=== PATIENT | female | born 1985 | race Caucasian/White ===

== ENCOUNTER 2023-08-07 23:24 | Emergency (ER) | payer OTHER, SELFPAY ==
[2023-08-07 23:27] VITALS: BP 143/79; PULSE 101; RESP 20; TEMP 36.3; O2SAT 98; BMI 48.7
--- NOTE | 2023-08-08 00:12 | ED_ITS ---
HPI - General Adult General Chief complaint: Allergic Reaction Stated complaint: allergic reaction Time Seen by Provider: 08/07/23 23:57 Source: patient Mode of arrival: ambulatory Limitations: no limitations History of Present Illness HPI narrative: 38-year-old female presents the emergency department for evaluation of itching of the right ear canal and feeling flushed after eating a new food. She consumed a a sour cream, cheese and corn based dip covered in [employer]. Symptoms started about 15 minutes after consuming the food. There is no swelling of the lips, tongue or throat. There is no itching of the oral airway. No difficulty breathing. No skin reaction or hives. No itching to any other areas of the body. Has not taken any antihistamine to help with symptoms. No history of similar symptoms. No trauma or injury, no diarrhea. She does have a history of hives from amitriptyline and unknown reactions to gabapentin and Phenergan. She does not take any medications. No fevers or signs of recent illness. No other individuals that consume the same food are currently symptomatic. Past medical history benign per her report, no major long-term health problems. No long-term medications, allergies as noted above. ROS is notable for the generalized and HEENT symptoms as above only, otherwise denies times 12 systems. Related Data Home Medications Medication Instructions Recorded Confirmed No Known Home Medications 08/07/23 08/07/23 Allergies Allergy/AdvReac Type Severity Reaction Status Date / Time amitriptyline Allergy Mild Hives Verified 08/07/23 23:31 gabapentin [From Neurontin] Allergy Unknown Verified 08/07/23 23:31 promethazine [From Phenergan] Allergy Unknown Verified 08/07/23 23:31 [facility] Social History Smoking Status: Unknown if ever smoked Exam Const: Vital Signs, click to edit/add: Vital Signs - 24 hr 08/07/23 23:27 Temperature 97.3 F L Pulse Rate [Pulse Oximeter] 101 H Respiratory Rate 20 Blood Pressure [Ri ght Upper Arm] 143/79 H Pulse Oximetry 98 Oxygen Delivery Me thod Room Air Documenting provider has reviewed patient's vital signs: yes Common normals: no apparent distress and alert General appearance: cooperative, comfortable and well kempt HENMT: Common normals: normocephalic and TM's normal bilaterally Head and scalp: normocephalic Face and sinus: normal facial exam Tympanic membrane: TM's normal bilaterally and other (Ear canals completely normal appearing bilaterally with no dermatoses) Mouth: oral and palatal mucosa normal, lip normal and tongue normal Throat: posterior oropharynx normal; no uvular edema Eye: Common normals: conjunctivae normal General eye: normal appearance of both eyes Conjunctiva: conjunctiva(e) normal Neck & C-Spine: Common normals: full ROM and no lymphadenopathy Resp: Common normals: normal respiratory effort, no use of accessory muscles and clear to auscultation bilaterally Effort & inspection: able to speak in complete sentences Auscultation: clear to auscultation bilaterally Cardio: Common normals: regular rate, regular rhythm, S1 normal heart sound, S2 normal heart sound and no murmurs Rate: regular rate Rhythm: regular rhythm Heart sounds: S1 normal and S2 normal Neuro: Sensorium/orientation: alert Speech: speech normal Motor exam: no movement abnormalities noted Psych: Common normals: speech normal Appearance: well kempt Attitude: engaged Speech: normal speech Mood and affect: euthymic mood Skin: Common normals: no rashes or lesions noted General skin exam: no rashes or lesions noted Course Course ED Course: No signs of anaphylaxis, counseled patient on findings. Likely a side effect from a seasoning additive but there are no signs of any life-threatening condition. Allergy testing will not likely reveal the offending agent. Offered antihistamine to help with itching, specifically Vistaril. She declines, hoping that she could return to work which is certainly feasible. She is given Benadryl to take with her in case her reaction worsens. Extensively counseled on signs and symptoms of anaphylaxis. Able to return to work, note given. Try to avoid offending food agent. Return to the ED if symptoms worsen. Vital Signs Vital signs: Initial Vital Signs Temperature 97.3 F L 08/07/23 23:27 Temperature Source Temporal Artery Scan 08/07/23 23:27 Pulse Rate 101 H 08/07/23 23:27 Respiratory Rate 20 08/07/23 23:27 Blood Pressure 143/79 H 08/07/23 23:27 Blood Pressure Mean 100 08/07/23 23:27 Blood Pressure Position Sitting 08/07/23 23:27 Pulse Oximetry 98 08/07/23 23:27 Oxygen Delivery Method Room Air 08/07/23 23:27 Vital Signs Temperature 97.3 F L 08/07/23 23:27 Pulse Rate 101 H 08/07/23 23:27 Respiratory Rate 20 08/07/23 23:27 Blood Pressure 143/79 H 08/07/23 23:27 Pulse Oximetry 98 08/07/23 23:27 Oxygen Delivery Method Room Air 08/07/23 23:27 Temperature 97.3 F L 08/07/23 23:27 Pulse Rate 101 H 08/07/23 23:27 Respiratory Rate 20 08/07/23 23:27 Blood Pressure 143/79 H 08/07/23 23:27 Pulse Oximetry 98 08/07/23 23:27 Oxygen Delivery Method Room Air 08/07/23 23:27 Medications Administered Medications: Generic Name Dose Route Start Last Admin Trade Name Sergey PRN Reason Stop Dose Admin Diphenhydramine HCl 25 mg 08/08/23 00:15 08/08/23 00:19 Diphenhydramine 25 Mg Capsule PO 08/08/23 00:16 25 mg ONCE ONE Administration Discharge Plan Discharge Clinical Impression: Adverse effect of food additive Patient Disposition: Home, Self-Care Condition: Stable Instructions: Food Allergy (ED) Additional Instructions: As we discussed, your symptoms are likely from a food additive but are not a type 1 hypersensitivity. There are no signs of anaphylaxis or dangerous allergic reaction. Unfortunately, testing for this condition and potential offending agent is not often helpful. Most likely this was a seasoning additive. You have declined Benadryl which may help with the itching. If your symptoms worsen in you start to experience any tingling or itching or swelling of the lips, tongue, mouth or any difficulty breathing, you need to take Benadryl right away. Stay around others that can monitor your symptoms for the next couple hours. Things are very unlikely to progress and worsen. Try to avoid the offending agent if possible. Activity Level: Activity as Tolerated Discharge Diet: Regular Prescriptions: No Action No Known Home Medications Stand Alone Forms: MyHealth Info Instructions
[2023-08-08] MEDS: diphenhydrAMINE 25 MG CAPSULE PO (00:19)
[2023-08-08 00:28] VITALS: BP 123/74; PULSE 90; RESP 20; TEMP 36.7; O2SAT 98
== END 2023-08-08 00:30 | disposition home or self-care (01) ==
LOC: ED 08-08 00:30
PROVIDERS: Emergency Provider Family Medicine
DX: T78.1XXA Other adverse food reactions, not elsewhere classified, initial encounter (principal); L29.9 Pruritus, unspecified
CPT/HCPCS: 99282; 99283; A9270

== ENCOUNTER 2023-12-10 01:00 | Outpatient (CLI) | payer OTHER, SELFPAY ==
[2023-12-10 01:18] LABS: Appearance Urine Clear (Clear); Bilirubin Urine 1+ (Negative); Blood Urine Trace-intact (Negative); Color Urine Dark yellow (Yellow); Glucose Urine Negative (Negative); Ketones Urine 1+ (Negative); Leukocyte Esterase Urine Negative (Negative); Nitrite Urine Negative (Negative); Protein Urine 1+ (Negative); Specific Gravity Urine >= 1.030 (1.000-1.030); pH Urine 5.5 (5.0-8.5)
[2023-12-10 01:42] LABS: RBC Urine 0-2 (0-2); WBC Urine 0-2 (0-5)
== END 2023-12-10 01:56 | disposition home or self-care (01) ==
LOC: OB CLI 01:04 → OB 01:05
PROVIDERS: PCP Advanced Practice Midwife; Visit Provider Advanced Practice Midwife
DX: R10.9 Unspecified abdominal pain (principal); R31.9 Hematuria, unspecified
CPT/HCPCS: 81001; 81003; G0463

== ENCOUNTER 2023-12-10 06:17 | Emergency (ER) | payer OTHER, SELFPAY ==
[2023-12-10 06:24] VITALS: BP 142/93; PULSE 99; RESP 18; TEMP 36.6; O2SAT 98; BMI 47.2
--- NOTE | 2023-12-10 06:26 | ED.FEMALEGU ---
HPI - Female Genitourinary General Time Seen by Provider: 06:26 Date Seen: 12/10/23 Chief complaint: Urogenital Problems, Female Stated complaint: Blood in urine, L side flank pain Time Seen by Provider: 12/10/23 06:24 Source: patient, RN notes reviewed and old records reviewed Mode of arrival: ambulatory Limitations: no limitations History of Present Illness HPI Narrative: 38-year-old female who comes in today with left flank pain and hematuria. Patient has a distant history of kidney stones when she was but nothing since then. Pain started yesterday, constant pain in the left flank that radiates around laterally a little bit, accompanied by nausea and vomiting. Took Tylenol and ibuprofen with minimal improvement. Related Data Home Medications Medication Instructions Recorded Confirmed No Known Home Medications 08/07/23 08/07/23 Allergies Allergy/AdvReac Type Severity Reaction Status Date / Time amitriptyline Allergy Mild Hives Verified 08/07/23 23:31 gabapentin [From Neurontin] Allergy Unknown Verified 08/07/23 23:31 promethazine [From Phenergan] Allergy Unknown Verified 08/07/23 23:31 PFSH PFSH Social History Smoking Status: Unknown if ever smoked Exam Narrative: Exam Narrative: General: Well-developed and well-nourished, no acute distress Head: Atraumatic and normocephalic Eyes: Pupils are equal reactive, extraocular motions intact, conjunctiva clear ENT: External nose and ears are normal, posterior pharynx without erythema or exudate Neck: No midline cervical tenderness, full spontaneous range of motion the neck, trachea midline, no adenopathy Heart: Regular rate and rhythm no murmurs or thrills Lungs: Clear to auscultation bilaterally without wheezes or crackles Abdomen: Soft, nontender, nondistended with active bowel sounds, left CVA tenderness Musculoskeletal: No tenderness, deformity, or edema Neurologic: Awake, alert, and oriented x3, no gross focal neurologic deficits, cranial nerves intact as tested Psych: Mood and affect are appropriate Skin: No rashes Const: Vital Signs, click to edit/add: Vital Signs - 24 hr 12/10/23 06:24 12/10/23 06:38 Temperature 97.8 F 97.8 F Pulse Rate [Pulse Oximeter] 99 Respiratory Rate 18 Blood Pressure [Le ft Upper Arm] 142/93 H Pulse Oximetry 98 Oxygen Delivery Me thod Room Air Course Course ED Course: Patient seen examined, prior records reviewed. Patient presents with left flank pain and some nausea overnight, has CVA tenderness. Consider musculoskeletal pain, kidney stone, pyelonephritis. Patient urinalysis done earlier that shows trace blood but no red cells, no evidence for infection. CT scan is ordered along with Zofran, Toradol, and fluids Reevaluation(s) Time of Reevaluation #1: 07:56 Reevaluation #1: CT scan of the abdomen and pelvis and panel interpreted by me does not demonstrate any evidence of nephrolithiasis, hydronephrosis, or hydroureter. There is some air in the bladder consistent with instrumentation which is not happened, or possible infection but urinalysis is not consistent with infection. Patient is stable for discharge with outpatient follow-up. Vital Signs Vital signs: Initial Vital Signs Temperature 97.8 F 12/10/23 06:24 Temperature Source Temporal Artery Scan 12/10/23 06:24 Pulse Rate 99 12/10/23 06:24 Respiratory Rate 18 12/10/23 06:24 Blood Pressure 142/93 H 12/10/23 06:24 Blood Pressure Mean 109 H 12/10/23 06:24 Blood Pressure Position Sitting 12/10/23 06:24 Pulse Oximetry 98 12/10/23 06:24 Oxygen Delivery Method Room Air 12/10/23 06:24 Vital Signs Temperature 97.8 F 12/10/23 06:24 Pulse Rate 99 12/10/23 06:24 Respiratory Rate 18 12/10/23 06:24 Blood Pressure 142/93 H 12/10/23 06:24 Pulse Oximetry 98 12/10/23 06:24 Oxygen Delivery Method Room Air 12/10/23 06:24 Temperature 97.8 F 12/10/23 06:38 Pulse Rate 99 12/10/23 06:24 Respiratory Rate 18 12/10/23 06:24 Blood Pressure 142/93 H 12/10/23 06:24 Pulse Oximetry 98 12/10/23 06:24 Oxygen Delivery Method Room Air 12/10/23 06:24 Medications Administered Medications: Discontinued Medications Generic Name Dose Route Start Last Admin Trade Name Freq PRN Reason Stop Dose Admin Sodium Chloride 1,000 mls @ 1,000 mls/hr 12/10/23 06:30 12/10/23 07:30 0.9 % Sodium Chloride 1000 Ml IV 12/10/23 07:29 Infused .Q1H ADITHYA Infusion Ketorolac Tromethamine 15 mg 12/10/23 06:30 12/10/23 06:38 Ketorolac 15 Mg/Ml Inj IVP 12/10/23 06:31 15 mg ONCE ONE Administration Ondansetron HCl 4 mg 12/10/23 06:30 12/10/23 06:37 Ondansetron 2 Mg/Ml Inj IVP 12/10/23 06:31 4 mg ONCE ONE Administration Discharge Plan Discharge Clinical Impression: Left flank pain Patient Disposition: Home, Self-Care Condition: Stable Instructions: Flank Pain (ED), Back Pain (ED) Activity Level: Light activity Discharge Diet: Regular Prescriptions: No Action No Known Home Medications Follow Up/Referrals: Alla Connell CNM [Primary Care Provider] - Stand Alone Forms: MyHealth Info Instructions
--- NOTE | 2023-12-10 06:30 | CT_ITS ---
Patient: ANABELLA NASH Facility:?[facility] Patient ID:?[id number] Site Patient ID:?[id number]. Site :?[id number] Study:?CT-Abdomen/Pelvis W/O-12/10/2023 6:52:19 AM Ordering Physician:KAYCE Final Report: INDICATION: LT ABDOMEN/FLANK PAIN, BLOOD IN URINE, HX OF KIDNEY STONES TECHNIQUE: CT abdomen and pelvis without contrast, stone protocol. COMPARISON: None. FINDINGS: Kidney/ureters: Kidneys are normal in caliber. No kidney or ureteral stones and no hydronephrosis. No sign of perinephric inflammation. Ureters are normal in caliber. Small volume air within the bladder dome. Liver/gallbladder/bile ducts: The liver is normal in size, shape and attenuation. Suspect surgically absent gallbladder. No biliary dilatation. Spleen/pancreas/adrenal glands: The spleen, adrenal glands and pancreas are within normal limits. GI tract: No evidence of bowel obstruction or inflammation. Mild stool burden. Normal appendix. Abdominal wall/omentum/peritoneum: No free air or significant free fluid. No mass or inflammation. Tiny fat containing umbilical hernia. Lymph nodes: No lymphadenopathy. Pelvis: Uterus is visualized. Nonspecific small volume air within the vaginal canal. Lower chest: Unremarkable. IMPRESSION: 1. No evidence of nephroureterolithiasis or hydroureteronephrosis. 2. Small volume air within the bladder dome. Findings may relate to prior Martin catheter manipulation. Cannot exclude infection. 3. Nonspecific small volume air within the vaginal canal. Please note that all CT scans at this facility use dose modulation, iterative reconstruction, and/or weight-based dosing when appropriate to reduce radiation dose to as low as reasonably achievable. Dictated by Jose Cornejo MD @ 12/10/2023 7:49:37 AM Signed by:?Jose Cornejo MD @12/10/2023 7:49:37 AM (Electronic Signature)
[2023-12-10] MEDS: ONDANSETRON 2 MG/ML inj 4 MG IVP (06:37)
[2023-12-10] MEDS: 0.9 % SODIUM CHLORIDE 1000 ml 1,000 ML IV (06:37)
[2023-12-10 06:38] VITALS: TEMP 36.6
[2023-12-10] MEDS: KETOROLAC 15 MG/ML inj IVP (06:38)
== END 2023-12-10 08:13 | disposition home or self-care (01) ==
PROVIDERS: Emergency Provider Family Medicine; PCP Advanced Practice Midwife
DX: R10.9 Unspecified abdominal pain (principal)
CPT/HCPCS: 74176; 96374; 96375; 99284; J1885; J2405; J7030

== ENCOUNTER 2024-05-10 06:08 | Emergency (ER) | payer OTHER, SELFPAY ==
[2024-05-10 06:15] VITALS: BP 134/91; PULSE 78; RESP 18; TEMP 36.8; O2SAT 99; BMI 44.3
--- NOTE | 2024-05-10 06:31 | CRLHL7_ITS ---
For Patients: As a result of the Cures Act, medical imaging exams and procedure reports are released immediately into your electronic medical record. You may view this report before your referring provider. If you have questions, please contact your health care provider. Indication: Palpable fullness right breast. Technique: The patient has an area of palpable concern in the right breast. The indicated area of concern is the 2 o`clock position of the right breast 2 centimeters from the nipple. Comparison: There are no prior studies for comparison Findings: A complex cystic fluid collection is noted in this area with surrounding edematous tissue. The surrounding tissue is mildly hypervascular. This probably represents a developing abscess in the setting of localized mastitis. Isolated sonography in this setting does not constitute a full or formal breast imaging. Follow up evaluation of this is recommended both clinically and by formal breast imaging as guided by the clinical evaluation. I discussed the above findings with Dr. Boyer at 8 a.m. on May 10, 2024 Impression: At the 2 o`clock position 2 centimeters from the nipple as a developing complex fluid collection measuring 6.4 x 2.1 x 5.8 centimeters. This probably represents a developing abscess in the setting of localized mastitis. Clinical and imaging follow-up is recommended to ensure this is a benign inflammatory focus. Dictated by Bari Ag MD @ 05/10/2024 8:03:31 AM (Electronically Signed)
--- NOTE | 2024-05-10 06:35 | ED.GENADULT ---
HPI - General Adult General Chief complaint: Breast Symptoms Stated complaint: RT breast pain Time Seen by Provider: 05/10/24 06:21 Source: patient Mode of arrival: ambulatory Limitations: no limitations History of Present Illness HPI narrative: 31-year-old female presents to the ED with right breast pain for less than 24 hours, worsening this morning. No trauma or injury. No for 5 years. Does not take any prescription medications. No discharge or drainage. Has not noticed any overlying redness of the skin. No fever. Tried some Tylenol at 3:00 a.m. with no significant improvement. Cannot even wear a bra. Area of maximum pain is around 2:00 a.m. from the nipple, just off of the Devante a and extending in about a 3-4 cm round area. No prior history of similar symptoms but she did have mastitis when she was lactating years ago and says that the pain feels similar. Does have bilateral nipple piercings, left breast is unaffected. No recent mammogram. Can feel a firm, heavy area but no discrete mass. Has not tried any other interventions prior to coming to ED. States that her past medical history is benign, denies major long-term health problems. Denies prescription medications. Allergies to amitriptyline gabapentin and Phenergan. ROS is notable for the right breast symptoms only, otherwise denies times 12 systems. Related Data Previous Rx's ?Medication ?Instructions ?Recorded doxycycline hyclate 100 mg capsule 100 mg PO BID #20 caps 05/10/24 Allergies Allergy/AdvReac Type Severity Reaction Status Date / Time amitriptyline Allergy Mild Hives Verified 05/10/24 06:18 gabapentin [From Neurontin] Allergy Unknown Verified 05/10/24 06:18 promethazine [From Phenergan] Allergy Unknown Verified 05/10/24 06:18 [facility] Social History Smoking Status: Never smoker Second hand tobacco smoke exposure: No How often do you have a drink containing alcohol: never AUDIT-C Alcohol total score: 0 Non-prescribed substance use: denies use Exam Const: Vital Signs, click to edit/add: Vital Signs - 24 hr 05/10/24 06:15 05/10/24 06:37 Temperature 98.2 F 98.2 F Pulse Rate [Right Pulse Oximeter] 78 Respiratory Rate 18 Blood Pressure [Ri ght Upper Arm] 134/91 H Pulse Oximetry 99 Oxygen Delivery Me thod Room Air Documenting provider has reviewed patient's vital signs: yes Common normals: no apparent distress General appearance: cooperative and well kempt HENMT: Face and sinus: normal facial exam Eye: General eye: normal appearance of both eyes Neck & C-Spine: General: normal visual inspection Chest: Other: Left breast is pendulous, normal in appearance. Limbal piercing present. Texture of the breast normal, non lactational with no mass or tenderness. Right breast has a slight fullness that can be seen in the upright position but no skin dimpling or retraction. Nipple piercing is present. Devante appears normal. There is a 4 cm area of slight increased density and tenderness but no discrete changes to the top of the skin, obvious mass. Area is exquisitely tender. No drainage noted from the nipple. No axillary adenopathy. There are a couple of pain point red papules just medial to the area of pain but no vesicles, abrasion or other signs of skin abnormality. Under breast does have very slight intertrigo but not unexpected for breast shape and size. Does not seem significantly infected on the underside. Breast overall without warmth or overlying redness. Resp: Common normals: normal respiratory effort Effort & inspection: able to speak in complete sentences Extremity: Common normals: normal to inspection Psych: Common normals: speech normal Appearance: well kempt Attitude: engaged Activity/motor behavior: appropriate eye contact Speech: normal speech Mood and affect: euthymic mood Skin: Common normals: no rashes or lesions noted Narrative: Other than slight small chain of red spots along medial right breast, no other abnormality. General skin exam: no rashes or lesions noted Course Course ED Course: Exquisite right breast tenderness with diffuse firmness concerning for abscess, non lactational mastitis, inflammation from a breast tumor, cellulitis, hematoma from undisclosed trauma, amongst others. Recommend ultrasound. Patient is hoping to go to work after the ultrasound, will give Toradol 10 mg p.o. x1. May require surgical consult and or antibiotic therapy. Awaiting ultrasound. Reevaluation(s) Time of Reevaluation #1: 07:04 Reevaluation #1: My interpretation of the ultrasound formal images matches with the tech impression which clearly shows a good-sized ultrasound at least 3 but probably closer to 4 cm round consistent with an abscess. These tend to take 1-2 hours for formal interpretation. Instead, I spoke with our general surgeon and explained how the clinical exam and my preliminary impression of the images matches with an abscess. She will arrange aspiration in the office today. Patient's contact information is given to the surgeon. We discussed antibiotics, she is in agreement for doxycycline. Patient has elected to stay home from work today to facilitate this appointment. Work note is given. Patient does need to drive herself home, will be given oxycodone from [employer] to take once she gets home as the Tylenol and Toradol are not really meeting her needs. Counseled on continuing Tylenol 1000 mg every 6 hours and/or ibuprofen 600 mg every 6 hours for pain. If the pain is still on resolved, limited supply of oxycodone 10 tablets is given. She will keep her appointment later today probably around lunchtime for aspiration from our surgical team. First dose of doxycycline given here in ED, remainder sent to her pharmacy per her request. Alarm symptoms reviewed that would warrant ED presentation, signs of sepsis, etc.. She verbalizes understanding and agreement. Call ED if she has not heard from the surgeon within 2 hours. Vital Signs Vital signs: Initial Vital Signs Temperature 98.2 F 05/10/24 06:15 Temperature Source Temporal Artery Scan 05/10/24 06:15 Pulse Rate 78 05/10/24 06:15 Respiratory Rate 18 05/10/24 06:15 Blood Pressure 134/91 H 05/10/24 06:15 Blood Pressure Mean 105 05/10/24 06:15 Blood Pressure Position Sitting 05/10/24 06:15 Pulse Oximetry 99 05/10/24 06:15 Oxygen Delivery Method Room Air 05/10/24 06:15 Vital Signs Temperature 98.2 F 05/10/24 06:15 Pulse Rate 78 05/10/24 06:15 Respiratory Rate 18 05/10/24 06:15 Blood Pressure 134/91 H 05/10/24 06:15 Pulse Oximetry 99 05/10/24 06:15 Oxygen Delivery Method Room Air 05/10/24 06:15 Temperature 98.2 F 05/10/24 06:37 Pulse Rate 78 05/10/24 06:15 Respiratory Rate 18 05/10/24 06:15 Blood Pressure 134/91 H 05/10/24 06:15 Pulse Oximetry 99 05/10/24 06:15 Oxygen Delivery Method Room Air 05/10/24 06:15 Medications Administered Medications: Discontinued Medications Generic Name Dose Route Start Last Admin Trade Name Sergey PRN Reason Stop Dose Admin Doxycycline Hyclate 100 mg 05/10/24 06:56 05/10/24 06:59 Doxycycline Hyclate 100 Mg PO 05/10/24 06:57 100 mg ONCE ONE Administration Ketorolac Tromethamine 10 mg 05/10/24 06:31 05/10/24 06:37 Ketorolac 10 Mg Tablet PO 05/10/24 06:32 10 mg ONCE ONE Administration Discharge Plan Discharge Clinical Impression: Breast abscess Patient Disposition: Home, Self-Care Condition: Stable Instructions: Abscess (ED) Additional Instructions: As we discussed, the tender area in your right breast does seem consistent with an abscess. The formal ultrasound report is pending at this time but tends to take 1-2 hours to come back. Because of this, I feel it is safe to send you home starting antibiotic treatment since the surgeon has planned follow-up mid day for you. I have spoken with Dr. Hunt, her office will be calling you shortly. She plans to see you in the clinic today to perform an aspiration of the abscess. This will help it heal and also help us know what kind of bacteria are present. She may change the instructions that I gave you based on her exam and findings. I have started you on doxycycline, a common antibiotic. Take 1 pill 2 times a day for 10 days. You have been given your 1st dose here in the ED, please take another dose before bed tonight. Most feel quite a bit better within 48 hours. I think it is safe to attempt to go to work tomorrow. For pain, Tylenol 1000 mg every 6 hours and/or ibuprofen 600 mg every 6 hours. I will also give you a limited supply of oxycodone to use if the pain is severe. You're welcome to try ice or hot packs, whichever feels better. If you have any signs of severe illness, weakness, dizziness, persistent high fever or other alarming symptoms, you should come back to the emergency department. Activity Level: Activity as Tolerated Discharge Diet: Regular Prescriptions: New doxycycline hyclate 100 mg capsule 100 mg PO BID Qty: 20 0RF Follow Up/Referrals: Provider,Not a Local [Primary Care Provider] - Stand Alone Forms: [facility] Info Instructions
[2024-05-10 06:37] VITALS: TEMP 36.8
[2024-05-10] MEDS: KETOROLAC 10 MG TABLET PO (06:37)
[2024-05-10] MEDS: DOXYCYCLINE HYCLATE 100 MG PO (06:59)
[2024-05-10 07:05] VITALS: BP 125/84; PULSE 74; RESP 18; TEMP 36.8; O2SAT 99
[2024-05-10 07:06] VITALS: BP 125/84; PULSE 74; RESP 18; TEMP 36.8
== END 2024-05-10 07:06 | disposition home or self-care (01) ==
LOC: ED 07:05
PROVIDERS: Emergency Provider Family Medicine
DX: N61.1 Abscess of the breast and nipple (principal)
CPT/HCPCS: 76642; 99283; A9270

== ENCOUNTER 2024-05-10 10:25 | Outpatient (CLI) | payer OTHER, SELFPAY | END 2024-05-10 10:26 | disposition home or self-care (01) | PROVIDERS: Visit Provider Surgery | DX: N61.1 Abscess of the breast and nipple (principal) | CPT/HCPCS: 87070 ==

== ENCOUNTER 2024-05-18 10:27 | Outpatient (CLI) | payer OTHER, SELFPAY ==
--- OUTSIDE RECORDS SUMMARY | 2024-05-18 10:29 | XMS_ITS | Clinical Summary ---
Author Organization [facility] Address [address] [place] [address] Care Team Providers Care Automotive Upholsterer Name Role Phone None Reported, Pcp Primary Care Provider Unavail able Source Comments Patient records contain information from all sites at [facility]. For routine questions regarding patient records, call [phone] during business hours, M-F 8:00 AM - 5:00 PM Central Time. Record requests for emergency care only can be directed to [phone] at any time.[facility] Allergies Active Allergy Reactions Criticality Noted Date Comments Amitriptyline Hives (Reselect Reaction),Nausea Only 03/04/2006 Not sure which med does what Gabapentin Hives (Reselect Reaction),Nausea Only 05/17/2008 Not sure which med does what Promethazine Hives (Reselect Reaction),Nausea Only 03/07/2006 Not sure which med does what Medications No known medications Active Problems No known active problems Social History Tobacco Use Types Packs/Day Years Used Date Smoking Tobacco: Never Assessed Nutrition Answer Date Recorded Nutrition: EVOO Fat Source Unknown 12/26 Nutrition: Servings of Fruits/Vegetables per Day Not on file 12/26/2022 Dental Answer Date Recorded Dental: Regular Dentist Unknown 12/27/19 Sex and Gender Information Value Date Recorded Sex Assigned at Not on file Gender Identity Not on file Sexual Orientation Not on file Last Filed Vital Signs Vital Sign Reading Time Taken Comments Blood Pressure 166/101 12/26/2022 12:12 PM CDT Pulse 74 12/26/2022 12:12 PM CDT Temperature 36.4 ??C (97.5 ??F) 12/26/2022 12:12 PM C DT Respiratory Rate 20 12/26/2022 12:12 PM CDT Oxygen Saturation 98% 12/26/2022 12:12 PM CDT Inhaled Oxygen Concentration - - Weight 140 kg (309 lb 8.4 oz) 12/26/2022 12:17 P M CDT Height - - Body Mass Index - - Plan of Treatment Health Maintenance Due Date Last Done Comments HIV Screening 1986 Hepatitis C Screening 1986 Lipid (Cholesterol) Screening 1986 DTaP,Tdap,and Td Vaccines (5 - Td or Tdap) 05/09/2019 05/09/2009, 03/21/1987, 1986, Additional history exists Depression Screening (Annual PHQ-2) 09/05/2023 COVID-19 Vaccine (2022- season) 2024 12/03/2022, 08/26/2021 Influenza Vaccine (#1) 2024 3, 11/26/2014, 05/26/2011, Additional history exists Hepatitis B Vaccines Completed 02/04/2015, 11/13/2003, 11/13/2003, Additional history exists HPV Vaccines Aged Out No longer eligi ble based on patient's age to complete this topic Pneumococcal vaccine (0-64 years) Aged Out No longer eligible based on patient's age to complete this topic Care Teams Automotive Upholsterer Relationship Specialty Start Date End Date None Reported, Pcp PCP - General Family Medicine 12/26/22
--- OUTSIDE RECORDS SUMMARY | 2024-05-18 10:30 | XMS_ITS | Clinical Summary ---
Author Organization [facility] Address [place], [place] [address] Care Team Providers Care Social Scientist Name Role Phone Emilee Lloyd Primary Care Provider [phone] Allergies Active Allergy Reactions Criticality Noted Date Comments Amitriptyline Hives,Nausea Only 03/04/2006 Not sure which med does what Gabapentin Hives,Nausea Only 05/17/2008 Not sure which med does what Promethazine Hives,Nausea Only 03/07/2006 Not sure which med does what Medications Medication Sig Dispensed Refills Start Date End Date Status semaglutide (Ozempic) 2 mg/dose (8 mg/3 mL) penIndications:Cl ass 3 severe obesity due to excess calories without serious comorbidity with body mass index (BMI) of 45.0 to 49.9 in adult (HC),Elevated blood pressure reading without diagnosis of hypertension Inject 0.75 mL (2 mg) subcutaneous once weekly. 9 mL 3 04/20/2024 Active LORazepam (ATIVAN) 0.5 mg tabIndications:Pa ellis attack TAKE 1/2 (ONE-HALF) TABLET BY MOUTH TWICE DAILY NEEDED FOR ANXIETY 10 Tablet 03/23/2024 Active hydrOXYzine HCL (ATARAX) 25 mg tabletIndications :Anxiety,Insomnia , unspecified type TAKE 1/2 (ONE-HALF) TABLET BY MOUTH EVERY 8 HOURS NEEDED FOR ANXIETY 25 Tablet 03/23/2024 Active FLUoxetine (PROZAC) 10 mg capsuleIndication s:Situational anxiety Take 1 Capsule (10 mg) by mouth once daily. 90 Capsule 2 05/08/2024 Active lisinopriL (PRINIVIL; ZESTRIL) 5 mg tabletIndications :Elevated blood pressure reading without diagnosis of hypertension Take 1 Tablet (5 mg) by mouth once daily. 90 Tablet 1 05/08/2024 Active Ozempic 0.25 mg or 0.5 mg (2 mg/3 mL) penIndications:Cl ass 3 severe obesity with body mass index (BMI) of 50.0 to 59.9 in adult (HC),Elevated blood pressure reading without diagnosis of hypertension INJECT 0.75 ML (0.5 MG) SUBCUTANEOUS ONCE WEEKLY FOR 28 DAYS 6 mL 01/04/2024 4 Discontinue d(*Med complete/Re gimen complete/Le omari of care change) lisinopriL (PRINIVIL; ZESTRIL) 5 mg tabletIndications :Elevated blood pressure reading without diagnosis of hypertension Take 1 Tablet (5 mg) by mouth once daily. 90 Tablet 01/04/2024 4 Discontinue d(Reorder (E-cancel not sent)) semaglutide (OZEMPIC) 1 mg/dose (4 mg/3 mL) penIndications:Cl ass 3 severe obesity due to excess calories without serious comorbidity with body mass index (BMI) of 45.0 to 49.9 in adult (HC),Elevated blood pressure reading without diagnosis of hypertension Inject 1 mg subcutaneous once weekly for 28 days. 3 mL 03/23/2024 4 FLUoxetine (PROZAC) 10 mg capsuleIndication s:Situational anxiety Take 1 capsule by mouth once daily 30 Capsule 03/22/2024 4 Discontinue d(Reorder (E-cancel not sent)) Active Problems Problem Noted Date Diagnosed Date Pap smear for cervical cancer screening 11/04/19 22 Overview (12/16/2021): 11/2021 NIL/HPV Negative. Plan: Pap/HPV testing due 11/2026 Status post repeat low transverse secti on 03/22/2018 Vaginal discharge during in third trim mike 03/09/2018 Overview (03/09/2018): r/o PROM; [place] on Divert Status Previous section complicating 03/08/2018 Kidney stone complicating , second trim mike 11/25/2017 Status post primary low transverse sect ion 07/21/2013 Overview (07/21/2013): for breech, failed version attempt Myopia 12/09/2010 External hemorrhoids without mention of complica tion 06/27/2010 Obesity, morbid 03/16/2010 Nightmares 11/07/2008 Insomnia, unspecified 11/07/2008 Anxiety disorder 08/06/2008 Overview (03/21/2014): zoloft not effective Occipital neuralgia 04/23/2008 Major depressive disorder, recurrent episode, un specified 02/17/2007 Allergic rhinitis, cause unspecified 02/17/2007 Esophageal reflux 02/17/2007 Resolved Problems Problem Noted Date Diagnosed Date Resolved Date Right lower quadrant abdominal pain 07/06/2016 11/25/2017 Previous section 01/20/2015 testing 12/18/2014 11/25/2017 Overview (12/18/2014): MPP TESTING ONLY: NEXT VISIT ALERTS: PRIMARY DIAGNOSIS: NST and BPP tests were ordered to be done on a weekly basis due to your baby's S/D ratio being slightly increased as noted by ultrasound on 12/11/2014 TESTING PLANS: Weekly BPP REFERRING PHYSICIAN: Dr. Ernesto Nina MEDS: Abnormal head circumference in relation to growth and age standard 12/11/2014 11/25/2017 Pubic bone pain 10/30/2014 11/25/2017 Pelvic pressure in , antepartum 10/30/2014 11/25/2017 Low-lying placenta 10/30/2014 8 Supervision of high-risk 10/24/2014 11/25/2017 Supervision of other normal 07/08/2014 10/24/2014 Patient desires vaginal gen h after section () 07/08/2014 10/30/2014 Overview (07/08/2014): Double layer closure, no laceration, done for failed ext version, breech 06/11/2014 11/25/2017 Breech presentation 07/20/2013 03/21/20 14 Backache 02/01/2013 03/21/2014 examination or alice t, unconfirmed 11/14/2012 07/16/2013 Oligohydramnios, antepartum 11/17/2011 07/16/2013 GBS (group B Streptococcus c arrier), +RV culture, currently 10/21/2011 07/16/2013 Supervision of other normal 05/12/2011 03/21/2014 LGA (large for gestational age) fetus 07/01/2010 09/29/2011 Medication exposure during f irst trimester of 03/16/2010 11/25/2017 Contact with or exposure to viral disease during the 1st trimester 03/16/2010 09/29/2011 Known or suspected anomaly, antepartum 0 09/29/2011 Excess weight 12/10/2009 11/25/2017 Supervision of normal first 12/10/2009 05/12/2011 Bipolar 2 disorder 10/17/2009 4 Overview (01/03/2014): seroquel - gained weight. Headache(784.0) 04/23/2008 11/25/2017 Borderline personality disorder 01/08/2007 09/28/2023 Depressive disorder, not elsewhere classified 05/02/20 06 01/20/2007 Migraine, unspecified, witho ut mention of intractable migraine without mention of status migrainosus 12/20/2005 01/20/2007 Term 11/25/2017 Encounters Date Type Department Care Team Description 05/08/2024 4:30 PM CDT Office Visit [facility] [address] [place] [id number] Angelique Garrido DO Medication Management; Refill Request (lisinopril, fluoxetine) 05/08/2024 Travel 03/20/2024 Refill [facility] [address] [place] [address] Angelique Garrido DO Refill Request (Lorazepam, Fluoxetine, Hydroxyzine Hcl, Ozempic) from Last 3 Months Immunizations Name Administration Dates Next Due AMB Influenza, IIV3 (Age >=3 years)(Flu Clinic Only) 06/22/2010 AMB Influenza, IIV4 PF (=>6 mos Flulaval,Fluzone Fluarix)(Flu Clinic Only) 06/26/2015 Amb Influenza, IIV4 (Age >= 3 Years) (Flu Clinic Only) 06/26/2015 COVID-19 vaccine (Moderna 100mcg/0.5mL) PF, MDV 08/26/2021 COVID-19 vaccine (Pfizer-Bio NTech 30mcg/0.3mL) 12YO+ PAYAL-SUCROSE PF, MDV 12/03/2022 DTaP 03/21/1987,1986,1986 Hepatitis A (Adult) 08/22/2003 Hepatitis A (Peds) 08/22/2003 Hepatitis B (Adult) 02/04/2015,11/13/2003,2002 Hepatitis B (Peds) 11/13/2003,08/22/2003 Influenza, IIV3 (Age >=3 years) 05/26/2011,06/22 Influenza, IIV4 05/31/2023,11/26/2014 MMR 01/21/2015,08/22/2003,12/22/1987 Meningococcal Vaccine 04/25/2006 Oral Polio Vaccine 1986,1986 Td (Age >=7 Years) 09/05/1998 Tdap 05/09/2009 Tuberculin (PPD) 11/21/2015, 6,11/26/2014,11/06,05/26/2011,02/17/2007,03/04/2006 ,05/15/2003 Typhoid (injectable) 08/22/2003 Family History Medical History Relation Name Comments Good Health Brother Good Health Daughter Unknown Father Unknown Maternal Grandfather Unknown Maternal Grandmother Alcohol/Drug Mother Alcoholism Mother Unknown Paternal Grandfather Unknown Paternal Grandmother Good Health Sister Good Health Son Relation Name Status Comments Brother Daughter Father Alive Maternal Grandfather Maternal Grandmother Mother Alive Paternal Grandfather Paternal Grandmother Sister Son Social History Tobacco Use Types Packs/Day Years Used Date Smoking Tobacco: Never Smokeless Tobacco: Never Tobacco Cessation:Counseling Given: Yes Alcohol Use Standard Drinks/Week Comments Yes 2 (1 standard drink = 0.6 oz pur e alcohol) 2-3 per week PHQ-2 Answer Date Recorded PHQ-2 TOTAL SCORE 1 01/27/2024 Social Connections Answer Date Recorded Frequency of Communication with Friends and Fami ly 0 05/08/2024 Financial Resource Strain Answer Date R ecorded Difficulty of Paying Living Expenses 3 05/08/2024 Difficulty of Paying Living Expenses Not on file 05/08/2024 Food Insecurity Answer Date Recorded Worried About Running Out of Food in the Last Ye ar 1 05/08/2024 Transportation Needs Answer Date Record ed Lack of Transportation (Medical) 1 05/08/2024 Housing Stability Answer Date Recorded Unable to Pay for Housing in the Last Year 1 05/08/2024 Sex and Gender Information Value Date Recorded Sex Assigned at Not on file Gender Identity Not on file Sexual Orientation Not on file Obstetrics History Para Term AB IAB SAB Ectopic Multiple Livin g Live Births 7 6 6 0 1 0 1 0 0 6 6 Date Outcome GA Total Labor Labor/2nd/3rd Weight Sex Type Anes PTL Leonela A1 A5 Name Clin 2009 Term 41w 0d 15h 00m/ 4.03 kg (8 lb 14 oz) M Vag Epidur al N Livin g Jung Roque Klebs Delivery Location:[place] 2011 Term 41w 2d 3.87 kg (8 lb 8.6 oz) F Vag Livin g 8 9 HARRIETT NASH Delivery Location:[facility] Comments:Maternal olig ohydramnios with decreased motion on 11/14 ultrasound. Mom was GBS + and received antibiotics > 4 hours prior. She has a history of bipolar disease, borderline personality disorder, depressions, obesity, and possible polycystic kidneys that resolved (???) 2 SAB 6w0 d 2012 Term 41w 0d 4.03 kg (8 lb 14.1 oz) F C-Sec tion Spinal N Livin g 2 7 BILLIE BAÑUELOS,DELIA LOZANO Dr. Klebs Delivery Location:[facility] 2014 Term 39w 2d 3.54 kg (7 lb 12.7 oz) F C-Sec tion Spinal Livin g 9 9 BG Endy WISE ( KASEY) [facility] 2016 Term 39w 0d 3.15 kg (6 lb 15 oz) F C-Sec tion Spinal N Livin g 9 9 Svetlana iNna [facility] 2017 Term 38w 0d 3.23 kg (7 lb 2 oz) F C-Sec tion Spinal N Livin g [address] Brendan talavera Complications:None Delivery Location:[facility] Last Filed Vital Signs Vital Sign Reading Time Taken Comments Blood Pressure 120/70 05/08/2024 4:37 PM CDT Pulse 85 05/08/2024 4:37 PM CDT Temperature 36.6 ??C (97.9 ??F) 05/04/2023 8:05 AM CD T Respiratory Rate 15 10/28/2023 8:06 AM COMPOUNDER HELPER Oxygen Saturation 99% 05/08/2024 4:37 PM CDT Inhaled Oxygen Concentration - - Weight 118.8 kg (262 lb) 05/08/2024 4:37 PM CDT Height 162.6 cm (5' 4) 09/28/2023 8:29 AM COMPOUNDER HELPER Body Mass Index 44.97 09/28/2023 8:29 AM COMPOUNDER HELPER Plan of Treatment Health Maintenance Due Date Last Done Comments Hepatitis C screening for age 18-79 2004 Tetanus booster 05/09/2019 05/09/2009, 09/05/1998 COVID-19 vaccine series ( season) 2024 12/03/2022, 08/26/2021 Influenza for age 9-49 05/06/2024 3, 06/26/2015, 06/26/2015, Additional history exists BMI (ht and wt on same day) for age 18+ 09/28/2024 09/28/2023, 02/20/2022, 11/04/2021, Additional history exists Depression screening for age 12+ 01/26/2025 01/27/2024, 09/28/2023, 09/28/2023, Additional history exists Pap test for age 21-65 11/04/2026 2, 11/04/2021, 02/09/2016, Additional history exists Tdap Completed 05/09/2009 HIV for age 15-65 Completed 09/07/2017, , 07/08/2014, Additional history exists Pneumococcal series for age 6-64 Aged Out No longer eligible based on patient's age to complete this topic Medical Devices Implanted Type Area Fundraising Manager Device Identifier Shelf Expiration Date Model / Serial / Lot K-Wire, .028 Mm - [id number] Implanted:Qty: 2 on 01/23/2015 by Victor Manuel Tamayo MD at [facility] Right: Finger [employer] 71-100 / / NA Procedures Procedure Name Priority Date/Time Associated Diagnosis Comments HPV THIN PREP Routine 11/04/2021 2:40 PM COMPOUNDER HELPER Screening for malignant neoplasm of cervix ANTI HIV 1/2 Routine 09/07/2017 2:53 PM COMPOUNDER HELPER , unspecified gestational age from Last 3 Months or Most Recently Relevant to Health Maintenance Results * HPV HIGH RISK (11/04/2021 2:40 PM COMPOUNDER HELPER) TYPE 16 Negative Negative 11/09/2021 3:23 PM COMPOUNDER HELPER [facility] TYPE 18 Negative Negative 11/09/2021 3:23 PM COMPOUNDER HELPER [facility] OTHER HIGH RISK TYPES Negative Negative 11/09/2021 3:23 PM COMPOUNDER HELPER [facility] Other (Cervical) Non-Blood / Unknown 11/04/2021 2:40 PM COMPOUNDER HELPER 11/06/2021 9:55 AM COMPOUNDER HELPER Narrative [facility] - 11/09/2021 3:23 PM COMPOUNDER HELPER HPV types 16, 18, 31, 33, 35, 39, 45, 51, 52, 56, 58, 59, 66 and 68 DNA were undetectable or below the pre-set threshold. Methodology: Earnest Fly 4800 HPV Test Fadia Silvestre MD MICROBIOLOGY [facility] [address] [place] [address], * ANTI HIV 1/2 (09/07/2017 2:53 PM COMPOUNDER HELPER) HIV-1/HIV-2 ANTIBODY Non-Reacti ve Non-Reacti ve 09/07/2017 7:40 PM COMPOUNDER HELPER [facility] Blood BLOOD SPECIMEN / Unknown Venipuncture / Unknown 09/07/2017 2:53 PM COMPOUNDER HELPER 09/07/2017 2:54 PM COMPOUNDER HELPER Narrative [facility] - 09/07/2017 7:40 PM COMPOUNDER HELPER HIV-1 p24 and HIV-1/HIV-2 Ab not detected Fadia Silvestre MD SEND OUTS [facility] [address] [place] [address], from Last 3 Months or Most Recently Relevant to Health Maintenance Advance Directives * Full Code (Latest Code Status on File) Date Activated Date Inactivated Comments 03/21/2018 6:05 AM 03/23/2018 2:01 PM * Full Code Date Activated Date Inactivated Comments 11/25/2017 4:20 PM 11/26/2017 2:56 PM * Full Code Date Activated Date Inactivated Comments 09/10/2016 10:06 AM 09/12/2016 8:00 PM Question Answer Comments Code Status Discussion: Not Discussed * Full Code Date Activated Date Inactivated Comments 09/10/2016 6:10 AM 09/10/2016 10:06 AM Question Answer Comments Code Status Discussion: Not Discussed * Full Code Date Activated Date Inactivated Comments 07/05/2016 5:44 PM 07/05/2016 11:21 PM Question Answer Comments Code Status Discussion: Discussed Care Teams Social Scientist Relationship Specialty Start Date End Date Emilee Lloyd DO [address] [place] [id number] PCP - General Family Practice 03/24/22
--- OUTSIDE RECORDS SUMMARY | 2024-05-18 10:30 | XMS_ITS | Referral Summary ---
Author Organization [facility] Address [address] [place] [address] Care Team Providers Care Studio Producer Name Role Phone None Reported, Pcp Primary Care Provider Unavail able Source Comments Patient records contain information from all sites at [facility]. For routine questions regarding patient records, call [phone] during business hours, M-F 8:00 AM - 5:00 PM Central Time. Record requests for emergency care only can be directed to [phone] at any time.[facility] Allergies Active Allergy Reactions Criticality Noted Date [...] Mass Index - - Plan of Treatment Not on file Care Teams Studio Producer Relationship Specialty Start Date End Date None Reported, Pcp PCP - General Family Medicine 12/26/22
--- OUTSIDE RECORDS SUMMARY | 2024-05-18 10:30 | XMS_ITS ---
Author Organization [facility] Address [address] [place] [address] Care Team Providers Care Supervisor Composing Room Name Role Phone Unavailable Unavailable Unavailable Surgery Details Not on file Complications Check Surgery Details section. Procedure Estimated Blood Loss Check Surgery Details section. Procedure Findings Check Surgery Details section. Procedure Specimens Taken Check Surgery Details section.
--- NOTE | 2024-05-18 10:45 | CRLHL7_ITS ---
For Patients: As a result of the Cures Act, medical imaging exams and procedure reports are released immediately into your electronic medical record. You may view this report before your referring provider. If you have questions, please contact your health care provider. BILATERAL DIAGNOSTIC MAMMOGRAM WITH COMPUTER-AIDED DETECTION AND TOMOSYNTHESIS RIGHT BREAST ULTRASOUND CLINICAL HISTORY: RIGHT breast abscess follow-up. COMPARISON: Ultrasound 05/10/2024. TECHNIQUE: Digital BILATERAL mammogram in four projections with computer-aided detection. Tomosynthesis was used in this interpretation. Real-time ultrasound imaging of RIGHT breast with imaging documentation. BREAST COMPOSITION: There are scattered areas of fibroglandular density. FINDINGS: 3D CC/MLO BILATERAL mammogram images submitted. Mild residual densities in the subareolar RIGHT breast noted without suspicious mass or architectural distortion. No adenopathy or suspicious calcifications. Targeted RIGHT breast ultrasound performed at 2 o`clock 2 cm from the nipple. Postprocedural changes of abscess drainage noted with a small amount of residual edema. No abnormal vascularity. A few focal normal fat lobules are incidentally noted. IMPRESSION: Near-complete resolution of the previously noted RIGHT breast abscess/mastitis. No suspicious findings. RECOMMENDATIONS: Clinical follow-up and age-appropriate screening mammography. BI-RADS Category 2: Benign Results and recommendations discussed with the patient. A lay language report of this examination will be provided to the patient. Dictated by Victor Manuel Vieira MD @ 05/18/2024 11:24:42 AM /sp SP/Dictated by: Victor Manuel Vieira MD @ 05/18/2024 11:24:00 AM (Electronically Signed)
--- NOTE | 2024-05-18 11:15 | CRLHL7_ITS ---
For Patients: As a result of the Century Cures Act, medical imaging exams and procedure reports are released immediately into your electronic medical record. You may view this report before your referring provider. If you have questions, please contact your health care provider. PLEASE SEE BILATERAL BREAST DIAGNOSTIC MAMMOGRAM PERFORMED SAME DAY. CRL:sp SP/Dictated by: Victor Manuel Vieira MD @ 05/18/2024 11:41:00 AM (Electronically Signed)
== END 2024-05-18 10:28 | disposition home or self-care (01) ==
PROVIDERS: Visit Provider Surgery
DX: N61.1 Abscess of the breast and nipple (principal); N64.52 Nipple discharge
CPT/HCPCS: 76642; 77066; G0279